=== PATIENT | male | born 1990 | race African-American/Black ===

== ENCOUNTER → 2019-09-01 | Emergency (ER) | payer MEDICAID ==
[~2019-09-01] VITALS: Ht 172.7 cm; Wt 104.3 kg
[~2019-09-01] MED LIST: cefTRIAXone SOD 1,000 MG VL IM ONE
[2019-09-01 00:49] VITALS: BP 123/78
== END | disposition home or self-care (01) ==
LOC: ER 00:20
DX: L02.213 Cutaneous abscess of chest wall (principal)
CPT/HCPCS: 96372; 99283; J0696

== ENCOUNTER 2025-02-01 18:38 | Emergency (ER) | payer MEDICAID ==
[~2025-02-01] VITALS: Ht 175.3 cm; Wt 111.8 kg
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
[2025-02-01] MEDS: KETOROLAC TROMETH 30 MG/ML 1ML VIAL IM ONE (21:36)
[2025-02-01] MEDS ORDERED: CYCL-837 PO (21:43)
[2025-02-01] MEDS ORDERED: IBUP-1455 PO (21:43)
[2025-02-01 22:04] VITALS: BP 135/84; TEMP 98.6; O2SAT 98
[2025-02-01 22:15] VITALS: PULSE 74; RESP 18
== END 2025-02-01 22:17 | disposition home or self-care (01) ==
LOC: ER 18:40
DX: S01.81XA Laceration without foreign body of other part of head, initial encounter (principal); S16.1XXA Strain of muscle, fascia and tendon at neck level, initial encounter; M54.50 Low back pain, unspecified; V89.2XXA Person injured in unspecified motor-vehicle accident, traffic, initial encounter; Y93.89 Activity, other specified; Y92.410 Unspecified street and highway as the place of occurrence of the external cause; Y99.8 Other external cause status
CPT/HCPCS: 12011; 96372; 99283; J1885